=== PATIENT | male | born 1985 | race Caucasian/White ===

== ENCOUNTER 2019-01-20 14:32 | Inpatient (IN) | payer MEDICAID ==
[2019-01-20] MEDS: ONDANSETRON 4 MG INJ IV ×2 (15:35→20:40)
[2019-01-20] MEDS: morphine 4 MG/ML VIAL IV (15:35)
[2019-01-20] MEDS: SOD CHLORIDE 0.9% 500 ML IV (15:40)
[2019-01-20 15:42] LABS: WHITE BLOOD COUNT 22.5 10^3/ul (4.8-10.8)
[2019-01-20 15:42] LABS: ABNORMAL IP MESSAGE 1; ADD MAN DIFF? NO; BASOPHIL # 0.1 10^3/ul (0.0-0.1); BASOPHILS % 0.2 % (0.0-2.0); HEMATOCRIT 50.6 % (42.0-52.0); HEMOGLOBIN 17.2 g/dl (14.0-18.0); LYMPHOCYTES # 1.2 10^3/ul (0.8-2.9); LYMPHOCYTES % 5.2 % (15.0-51.0); MEAN CORPUSCULAR HEMOGLOBIN 29.5 pg (29.0-33.0); MEAN CORPUSCULAR VOLUME 86.8 fl (82.0-101.0); MEAN PLATELET VOLUME 9.2 fl (7.4-10.4); MONOCYTES % 4.4 % (0.0-11.0); NEUTROPHIL # 20.2 10^3/ul (1.6-7.5); NEUTROPHILS % 89.7 % (39.0-77.0); PLATELET COUNT 330 10^3/UL (140-415); POSITIVE DIFF @See below; RED BLOOD COUNT 5.83 10^6/ul (4.70-6.10); RED CELL DISTRIBUTION WIDTH 12.3 % (11.5-14.5)
[2019-01-20 15:54] LABS: ADD UMIC YES; UR ASCORBIC ACID 40 mg/dL (NEGATIVE); UR BILIRUBIN (Dip) NEGATIVE (NEGATIVE); UR BLOOD (Dip) NEGATIVE (NEGATIVE); UR CLARITY SLIGHTLY CLOUDY (CLEAR); UR COLOR YELLOW (YELLOW); UR GLUCOSE (Dip) NEGATIVE (NEGATIVE); UR KETONES (Dip) 1+ mg/dL (NEGATIVE); UR LEUKOCYTE ESTERASE (Dip) NEGATIVE Leu/ul (NEGATIVE); UR MUCUS MANY /HPF (NONE SEEN); UR NITRITE (Dip) NEGATIVE (NEGATIVE); UR RBC 3 /HPF (0-5); UR SPECIFIC GRAVITY (Dip) 1.034 (1.003-1.030); UR TOTAL PROTEIN (Dip) 1+ mg/dl (NEGATIVE); UR UROBILINOGEN (Dip) NEGATIVE (NEGATIVE); UR WBC 1 /HPF (0-5)
[2019-01-20 15:59] LABS: PATH REVIEW? YES
[2019-01-20 16:00] LABS: ALANINE AMINOTRANSFERASE 31 IU/L (13-69); ALBUMIN 4.6 g/dl (3.3-4.9); ALBUMIN/GLOBULIN RATIO 1.43; ALKALINE PHOSPHATASE 75 IU/L (42-121); ANION GAP 12 (5-13); ASPARTATE AMINO TRANSFERASE 23 IU/L (15-46); BILIRUBIN,INDIRECT 1.2 mg/dl (0-1.1); BILIRUBIN,TOTAL 1.2 mg/dl (0.2-1.3); BLOOD UREA NITROGEN 9 mg/dl (7-20); CALCIUM 9.9 mg/dl (8.4-10.2); CARBON DIOXIDE 28 mmol/L (21-31); CHLORIDE 100 mmol/L (97-110); CREATININE 0.73 mg/dl (0.61-1.24); Estimated GFR > 60 mL/min (>60); GLUCOSE 118 mg/dl (70-220); LIPASE 26 U/L (23-300); POTASSIUM 3.9 mmol/L (3.5-5.1); SODIUM 140 mmol/L (135-144); TOTAL PROTEIN 7.8 g/dl (6.1-8.1)
[2019-01-20] MEDS: SOD CHLORIDE 0.9% 1,000 ML IV (16:36)
[2019-01-20] MEDS: PIPER-TAZO 3.375 GM IV (PMX) 100 ML IVPB (16:36)
[2019-01-20 17:14] LABS: INR 1.03; PROTIME 13.6 Sec (11.9-14.9); PT RATIO 1.1
[2019-01-20 17:15] LABS: PARTIAL THROMBOPLASTIN TIME 25.5 Sec (23.0-35.0)
[2019-01-20] MEDS ORDERED: NS + KCL 20 MEQ 1,000 ML IV (18:27)
[2019-01-20] MEDS ORDERED: ZOLPIDEM 5 MG TAB PO (18:30)
[2019-01-20] MEDS ORDERED: HYDROCODONE/APAP (5/325) TAB PO ×2 (18:30→19:30)
[2019-01-20] MEDS ORDERED: DOCUSATE SODIUM 100 MG CAP PO (18:30)
[2019-01-20] MEDS ORDERED: morphine 2 MG INJ IV (18:30)
[2019-01-20] MEDS ORDERED: ONDANSETRON 4 MG INJ IV (18:30)
[2019-01-20] MEDS ORDERED: NACL 0.9% 3 ML SYG IV (18:30)
[2019-01-20] MEDS ORDERED: ACETAMINOPHEN 325 MG TAB PO ×2 (18:30→19:30)
[2019-01-20] MEDS ORDERED: MIDAZOLAM 1 MG/ML 2 ML INJ (18:54)
[2019-01-20] MEDS ORDERED: NEOSTIGMINE 3 MG/3 ML SYRINGE (18:54)
[2019-01-20] MEDS ORDERED: PROPOFOL 20 ML (18:54)
[2019-01-20] MEDS ORDERED: ONDANSETRON 4 MG INJ (18:54)
[2019-01-20] MEDS ORDERED: DEXAMETHASONE 4 MG/ML 5 ML INJ (18:54)
[2019-01-20] MEDS ORDERED: GLYCOPYRROLATE 0.4 MG INJ (18:54)
[2019-01-20] MEDS ORDERED: FENTAnyl 50 MCG/ML VIAL (18:54)
[2019-01-20] MEDS ORDERED: CEFAZOLIN 1 GM INJ (18:54)
[2019-01-20] MEDS ORDERED: ROCURONIUM 50 MG INJ (18:54)
[2019-01-20] MEDS: BUPIVACAINE 0.25%/EPI (SDV) 30 ML INJ (19:08)
[2019-01-20] MEDS: LIDOCAINE 1% (MPF) 30 ML INJ (19:08)
[2019-01-20] MEDS: HYDROCODONE/APAP (5/325) TAB PO (19:30)
[2019-01-20] MEDS: KETOROLAC 60 MG INJ IM (19:32)
[2019-01-20] MEDS: morphine 2 MG INJ IV (20:40)
[2019-01-20] MEDS: KETOROLAC 30 MG INJ IM (21:00)
[2019-01-20] MEDS: D5-NS + KCL 20 MEQ 1,000 ML IV (22:07)
[2019-01-21] MEDS ORDERED: PIPER-TAZO 3.375 GM IV (PMX) 100 ML IVPB
[2019-01-21] MEDS: PIPER-TAZO 3.375 GM IV (PMX) 100 ML IVPB ×3 (00:02→11:09)
[2019-01-21 05:05] LABS: ADD MAN DIFF? NO
[2019-01-21 05:09] LABS: BASOPHILS % 0.1 % (0.0-2.0); HEMATOCRIT 43.8 % (42.0-52.0); HEMOGLOBIN 15.4 g/dl (14.0-18.0); LYMPHOCYTES % 7.8 % (15.0-51.0); MEAN CORPUSCULAR HEMOGLOBIN 30.3 pg (29.0-33.0); MEAN CORPUSCULAR HGB CONC 35.2 g/dl (32.0-37.0); MEAN CORPUSCULAR VOLUME 86.1 fl (82.0-101.0); MEAN PLATELET VOLUME 9.4 fl (7.4-10.4); MONOCYTE # 0.2 10^3/ul (0.3-0.9); MONOCYTES % 1.6 % (0.0-11.0); NEUTROPHIL # 11.8 10^3/ul (1.6-7.5); NEUTROPHILS % 90.1 % (39.0-77.0); PLATELET COUNT 296 10^3/UL (140-415); RED BLOOD COUNT 5.09 10^6/ul (4.70-6.10); RED CELL DISTRIBUTION WIDTH 12.5 % (11.5-14.5)
[2019-01-21 05:09] LABS: WHITE BLOOD COUNT 13.1 10^3/ul (4.8-10.8)
[2019-01-21 05:18] LABS: HEMOGLOBIN A1C 5.1 % (0-5.9)
[2019-01-21 05:23] LABS: ANION GAP 8 (5-13); BLOOD UREA NITROGEN 10 mg/dl (7-20); CALCIUM 9.2 mg/dl (8.4-10.2); CARBON DIOXIDE 27 mmol/L (21-31); CHLORIDE 107 mmol/L (97-110); CREATININE 0.71 mg/dl (0.61-1.24); Estimated GFR > 60 mL/min (>60); GLUCOSE 149 mg/dl (70-220); PHOSPHORUS 3.3 mg/dl (2.5-4.9); POTASSIUM 4.2 mmol/L (3.5-5.1); SODIUM 142 mmol/L (135-144)
[2019-01-21] MEDS: ENOXAPARIN 40 MG/0.4 ML SYG SC (09:39)
[2019-01-21] MEDS: D5-NS + KCL 20 MEQ 1,000 ML IV (09:42)
== END 2019-01-21 12:41 | disposition home or self-care (01) | DRG 343 ==
LOC: FTE 14:32 → REC 18:29 → MS1 20:59
PROC: 0DTJ4ZZ Resection of Appendix, Percutaneous Endoscopic Approach (ICD-10-PCS; principal; 2019-01-20 17:00)
DX: K35.80 Unspecified acute appendicitis (principal)
CPT/HCPCS: 36415; 73630; 74176; 80048; 80053; 81001; 83036; 83690; 83735; 84100; 85025; 85610; 85730; 86850; 86900; 86901; 88304; 96374; 96375; 99285-25